=== PATIENT | female | born 1980 | race Asian ===

== ENCOUNTER 2024-12-20 16:22 | Inpatient (IN) | payer MEDICAID ==
[~2024-12-20] VITALS: Ht 160 cm; Wt 53.1 kg
[2024-12-20 16:33] VITALS: O2SAT 99
[2024-12-20 17:49] LABS: BASOPHILS % 0.6 % (0.0-2.0); EOSINOPHILS % 1.0 % (0.0-5.0); HEMATOCRIT. 38.2 % (36.0-48.0); HEMOGLOBIN. 12.0 g/dL (12.0-16.0); LYMPHOCYTES % 24.3 % (20.0-50.0); MEAN PLATELET VOLUME 8.4 fl (7.4-10.4); MONOCYTES % 6.3 % (2.0-8.0); NEUTROPHILS % 67.8 % (40.0-76.0); PLATELET 272 x1000/uL (130-400); RED BLOOD CELL COUNT 5.77 mill/uL (4.2-5.4); RED CELL DISTRIBUTION WIDTH 16.3 % (11.6-14.6)
[2024-12-20 17:53] LABS: ADD RBC MORPHOLOGY YES
[2024-12-20 18:01] LABS: CREATININE 0.6 mg/dL (0.6-1.0)
[2024-12-20 18:02] LABS: UREA NITROGEN BLOOD 9 mg/dL (9-23)
[2024-12-20 18:03] LABS: ASPARTATE AMINOTRANSFERASE 13 IU/L (<34)
[2024-12-20 18:04] LABS: BILIRUBIN DIRECT < 0.1 mg/dL (<=3.0); BILIRUBIN TOTAL 0.4 mg/dL (0.1-1.0); PROTEIN TOTAL 7.2 g/dL (6.0-8.3)
[2024-12-20 18:12] LABS: HCG SCREEN NEGATIVE
[2024-12-20 19:53] LABS: PLATELET ESTIMATE NORMAL
[2024-12-20 20:08] LABS: CLARITY URINE CLEAR (CLEAR); COLOR URINE YELLOW (YELLOW); GLUCOSE URINE NEGATIVE (NEGATIVE); KETONES URINE NEGATIVE (NEGATIVE); LEUKOCYTE ESTERASE URINE 1+ (NEGATIVE); NITRITE URINE NEGATIVE (NEGATIVE); OCCULT BLOOD URINE NEGATIVE (NEGATIVE); PH URINE 7.5 (4.5-8.0); PROTEIN URINE NEGATIVE (NEGATIVE); SPECIFIC GRAVITY URINE 1.003 (1.005-1.030); UROBILINOGEN URINE 0.2 E.U./dL (0.2-1.0)
[2024-12-20 20:16] LABS: RBC URINE NONE SEEN /hpf (0-2)
[2024-12-20 20:17] LABS: BACTERIA URINE TRACE; SQUAMOUS EPITHELIAL CELL URINE RARE /lpf (RARE/1+)
[2024-12-20] MEDS: METOCLOPRAMIDE HCL 10MG/2ML VIAL IV ONE (20:49)
[2024-12-20 21:30] VITALS: BP 136/92; PULSE 96; RESP 18; TEMP 36.6; TEMP 36.6404; O2SAT 100
[2024-12-20] MEDS ORDERED: CLONIDINE 0.1MG TABLET PO PRN (23:15)
[2024-12-21] MEDS: SODIUM CHLORIDE 0.9% 1,000 ML IV SCH (00:05)
[2024-12-21] MEDS: ZOLPIDEM TARTRATE 5MG TABLET PO PRN (01:05)
[2024-12-21 04:00] VITALS: BP 99/62; PULSE 18; RESP 18; TEMP 36.6; O2SAT 100
[2024-12-21 05:49] LABS: CREATININE 0.5 mg/dL (0.6-1.0)
[2024-12-21 05:50] LABS: UREA NITROGEN BLOOD 9 mg/dL (9-23)
[2024-12-21 06:57] LABS: BASOPHILS % 0.5 % (0.0-2.0); EOSINOPHILS % 1.6 % (0.0-5.0); HEMATOCRIT. 34.4 % (36.0-48.0); HEMOGLOBIN. 10.9 g/dL (12.0-16.0); LYMPHOCYTES % 28.2 % (20.0-50.0); MEAN PLATELET VOLUME 9.2 fl (7.4-10.4); MONOCYTES % 7.2 % (2.0-8.0); NEUTROPHILS % 62.5 % (40.0-76.0); PLATELET 253 x1000/uL (130-400); RED BLOOD CELL COUNT 5.28 mill/uL (4.2-5.4); RED CELL DISTRIBUTION WIDTH 15.5 % (11.6-14.6)
[2024-12-21 08:00] VITALS: BP 114/76; PULSE 92; RESP 18; TEMP 36.4; O2SAT 100
[2024-12-21] MEDS: PANTOPRAZOLE SODIUM 40 MG/VIAL IV SCH (08:59)
[2024-12-21] MEDS: ENOXAPARIN 40MG/0.4ML SYR SUBCUT SCH (08:59)
[2024-12-21 10:50] LABS: *AMPHETAMINES SCREEN URINE NEGATIVE (NEGATIVE)
[2024-12-21 10:51] LABS: *BARBITURATES SCREEN URINE NEGATIVE (NEGATIVE); *BENZODIAZEPINES SCREEN URINE NEGATIVE (NEGATIVE); *COCAINE SCREEN URINE NEGATIVE (NEGATIVE)
[2024-12-21 10:53] LABS: CANNABINOID URINE SCREEN NEGATIVE (NEGATIVE); METHADONE URINE SCREEN NEGATIVE (NEGATIVE); OPIATES URINE SCREEN NEGATIVE (NEGATIVE); PHENCYCLIDINE URINE SCREEN NEGATIVE (NEGATIVE)
[2024-12-21 10:54] LABS: ECSTASY MDMA SCREEN URINE NEGATIVE (NEGATIVE)
[2024-12-21 12:00] VITALS: BP 118/89; PULSE 76; RESP 19; TEMP 36; O2SAT 100
[2024-12-21 16:00] VITALS: BP 110/80; PULSE 77; RESP 18; TEMP 35.9; O2SAT 100
[2024-12-21 20:00] VITALS: BP 109/75; PULSE 88; RESP 18; TEMP 36.9; O2SAT 100
[2024-12-21] MEDS: ONDANSETRON HCL 4MG/2ML INJ IV PRN (21:14)
[2024-12-22] VITALS: BP 110/80; PULSE 90; RESP 18; TEMP 36.8; O2SAT 100
[2024-12-22 04:00] VITALS: BP 98/63; PULSE 81; RESP 18; TEMP 36.1; O2SAT 97
[2024-12-22 06:30] LABS: BASOPHILS % 0.6 % (0.0-2.0); EOSINOPHILS % 2.1 % (0.0-5.0); HEMATOCRIT. 36.2 % (36.0-48.0); HEMOGLOBIN. 11.3 g/dL (12.0-16.0); LYMPHOCYTES % 33.7 % (20.0-50.0); MEAN PLATELET VOLUME 8.8 fl (7.4-10.4); MONOCYTES % 8.7 % (2.0-8.0); NEUTROPHILS % 54.9 % (40.0-76.0); PLATELET 247 x1000/uL (130-400); RED BLOOD CELL COUNT 5.49 mill/uL (4.2-5.4); RED CELL DISTRIBUTION WIDTH 16.0 % (11.6-14.6)
[2024-12-22 08:00] VITALS: BP 100/64; PULSE 80; RESP 18; TEMP 36.1; O2SAT 97
[2024-12-22 08:03] LABS: CREATININE 0.6 mg/dL (0.6-1.0)
[2024-12-22 08:04] LABS: UREA NITROGEN BLOOD 7 mg/dL (9-23)
[2024-12-22 12:00] VITALS: BP 101/60; RESP 18; TEMP 36.4; O2SAT 97
[2024-12-22] MEDS ORDERED: NALOXONE HCL 0.4MG/ML VIAL IV PRN (15:00)
[2024-12-22 16:00] VITALS: BP 108/74; PULSE 100; RESP 16; TEMP 36.4; O2SAT 100
[2024-12-22] MEDS: CEFTRIAXONE 1GM/50ML 50 ML IV SCH (17:28)
[2024-12-22] MEDS: ACETAMINOPHEN 325MG TABLET PO PRN (17:35)
[2024-12-22 20:00] VITALS: BP 123/84; PULSE 92; RESP 18; TEMP 36.7; O2SAT 98
[2024-12-23] VITALS: BP 105/71; PULSE 97; RESP 18; TEMP 36.3; O2SAT 99
[2024-12-23 04:00] VITALS: BP 97/63; PULSE 73; RESP 18; TEMP 36.3; O2SAT 98
[2024-12-23 05:46] LABS: BASOPHILS % 0.5 % (0.0-2.0); EOSINOPHILS % 2.5 % (0.0-5.0); HEMATOCRIT. 37.0 % (36.0-48.0); HEMOGLOBIN. 11.4 g/dL (12.0-16.0); LYMPHOCYTES % 32.9 % (20.0-50.0); MEAN PLATELET VOLUME 9.2 fl (7.4-10.4); MONOCYTES % 9.7 % (2.0-8.0); NEUTROPHILS % 54.4 % (40.0-76.0); PLATELET 248 x1000/uL (130-400); RED BLOOD CELL COUNT 5.62 mill/uL (4.2-5.4); RED CELL DISTRIBUTION WIDTH 16.0 % (11.6-14.6)
[2024-12-23 06:14] LABS: CREATININE 0.6 mg/dL (0.6-1.0); UREA NITROGEN BLOOD 8 mg/dL (9-23)
[2024-12-23 07:00] LABS: ADD RBC MORPHOLOGY NO
[2024-12-23 08:00] VITALS: BP 100/60; PULSE 80; RESP 18; TEMP 36.3; O2SAT 98
[2024-12-23] MEDS ORDERED: BARIUM SULFATE 176 GM SUSP.RECON ONE (08:58)
[2024-12-23] MEDS ORDERED: EZ-HD SUSPENSION(BARIUM SULFATE 340GM) PO ONE (08:58)
[2024-12-23 12:00] VITALS: BP 112/64; PULSE 75; RESP 18; TEMP 36.4; O2SAT 98
[2024-12-23] MEDS: BACLOFEN 10MG TABLET PO SCH (13:31)
[2024-12-23 16:00] VITALS: BP 110/60; PULSE 75; RESP 18; TEMP 36.1; O2SAT 98
[2024-12-23 20:00] VITALS: BP 141/97; PULSE 74; RESP 18; TEMP 36.5; O2SAT 100
[2024-12-24 04:00] VITALS: BP 106/71; PULSE 82; RESP 18; TEMP 36.5; O2SAT 99
[2024-12-24 08:00] VITALS: BP 116/88; PULSE 80; RESP 16; TEMP 36.1; O2SAT 97
[2024-12-24] MEDS: HYDROCODONE/ACETAMINOPHEN 5/325MG TABLET PO PRN (08:58)
[2024-12-24 10:39] LABS: INR 1.0
[2024-12-24 10:42] LABS: BASOPHILS % 0.8 % (0.0-2.0); EOSINOPHILS % 2.1 % (0.0-5.0); HEMATOCRIT. 37.6 % (36.0-48.0); HEMOGLOBIN. 11.8 g/dL (12.0-16.0); LYMPHOCYTES % 29.9 % (20.0-50.0); MEAN PLATELET VOLUME 8.7 fl (7.4-10.4); MONOCYTES % 8.2 % (2.0-8.0); NEUTROPHILS % 59.0 % (40.0-76.0); PLATELET 254 x1000/uL (130-400); RED BLOOD CELL COUNT 5.71 mill/uL (4.2-5.4); RED CELL DISTRIBUTION WIDTH 15.7 % (11.6-14.6)
[2024-12-24 10:46] LABS: CREATININE 0.6 mg/dL (0.6-1.0)
[2024-12-24 10:47] LABS: UREA NITROGEN BLOOD 6 mg/dL (9-23)
[2024-12-24 12:00] VITALS: BP 113/61; PULSE 75; RESP 16; TEMP 36.1; O2SAT 99
[2024-12-24 16:00] VITALS: BP 113/82; PULSE 74; RESP 16; TEMP 36.6; O2SAT 100
[2024-12-24 20:00] VITALS: BP 141/106; PULSE 74; RESP 18; TEMP 36.2; O2SAT 97
[2024-12-24] MEDS: MAGNESIUM/ALUMINUM HYDROXIDE/SIMETHICONE 30ML UDC PO PRN (20:01)
[2024-12-25] VITALS: BP 144/82; PULSE 71; RESP 18; TEMP 36.3; O2SAT 100
[2024-12-25 04:00] VITALS: BP 107/69; PULSE 83; RESP 18; TEMP 36.3; O2SAT 100
[2024-12-25 08:00] VITALS: BP 137/90; PULSE 78; RESP 16; TEMP 36.6; O2SAT 100
[2024-12-25] MEDS ORDERED: DEXT 5%/0.9% NACL 1,000 ML IV ONE (09:00)
[2024-12-25] MEDS: [UNRECOGNIZED DRUG - REMARK] IV ONE (10:35)
[2024-12-25 12:00] VITALS: BP 115/89; PULSE 81; RESP 17; TEMP 36.5; TEMP 36.6; O2SAT 100
[2024-12-25 12:10] LABS: BASOPHILS % 0.9 % (0.0-2.0); EOSINOPHILS % 1.2 % (0.0-5.0); HEMATOCRIT. 40.3 % (36.0-48.0); HEMOGLOBIN. 12.7 g/dL (12.0-16.0); LYMPHOCYTES % 24.3 % (20.0-50.0); MONOCYTES % 6.0 % (2.0-8.0); NEUTROPHILS % 67.6 % (40.0-76.0); RED BLOOD CELL COUNT 6.18 mill/uL (4.2-5.4); RED CELL DISTRIBUTION WIDTH 15.9 % (11.6-14.6)
[2024-12-25 12:16] LABS: INR 1.0
[2024-12-25 12:21] LABS: CREATININE 0.6 mg/dL (0.6-1.0); UREA NITROGEN BLOOD 5 mg/dL (9-23)
[2024-12-25 12:23] LABS: ASPARTATE AMINOTRANSFERASE 39 IU/L (<34); BILIRUBIN TOTAL 0.6 mg/dL (0.1-1.0); PROTEIN TOTAL 6.3 g/dL (6.0-8.3)
[2024-12-25 12:25] LABS: PLATELET 251 x1000/uL (130-400)
[2024-12-25] MEDS ORDERED: ONDANSETRON HCL 4MG/2ML INJ IV PRN (13:45)
[2024-12-25] MEDS ORDERED: PROPOFOL 200MG/20ML VIAL IV ONE (13:47)
[2024-12-25] MEDS ORDERED: PROT40 MT (15:40)
[2024-12-25 15:54] VITALS: BP 122/88; PULSE 84; RESP 17; TEMP 97.5
[2024-12-25 16:00] VITALS: BP 122/88; PULSE 80; RESP 16; TEMP 36.4; O2SAT 100
== END 2024-12-25 18:17 | disposition home or self-care (01) | DRG 241 ==
LOC: ER 17:36 → EDBEDREQ 20:51 → EDBEDREQTM 20:51 → ENRESERV 20:57 → 7EST 21:28
PROVIDERS: ADMIT Internal Medicine; ATTEND Internal Medicine
PROC: 0DB64ZX Excision of Stomach, Percutaneous Endoscopic Approach, Diagnostic (ICD-10-PCS; principal; 2024-12-25)
DX: K29.70 Gastritis, unspecified, without bleeding (principal); D50.9 Iron deficiency anemia, unspecified; R13.10 Dysphagia, unspecified; N39.0 Urinary tract infection, site not specified; G47.00 Insomnia, unspecified; K21.9 Gastro-esophageal reflux disease without esophagitis; K22.4 Dyskinesia of esophagus; Z79.899 Other long term (current) drug therapy
CPT/HCPCS: 36415; 70490; 74220; 76700; 80048; 80053; 80076; 80305; 81003; 84443; 84703; 85025; 88305; 88312; 88313; 92610; 93970; 99285; A4606; J0696; J1650; J2405; J2470; J2704; J2765; J3411; J3490; J7030; J7042